=== PATIENT | female | born 1955 | race Caucasian/White ===

== ENCOUNTER → 2017-03-29 16:04 | Outpatient (CLI) | payer OTHER ==
[2013-05-05 08:25] VITALS: BMI 24.0
[~2017-03-29 16:04] MED LIST: ADIPEX-P37.5 M1 PO; NORCO 10/325 TA1 TA1 PO
== END | disposition home or self-care (01) ==
LOC: D.MAMMO 09:45
DX: Z12.31 Encounter for screening mammogram for malignant neoplasm of breast (principal)

== ENCOUNTER → 2017-04-28 16:09 | Outpatient (CLI) | payer OTHER ==
[2013-05-05 08:25] VITALS: BMI 24.0
== END | disposition home or self-care (01) ==
LOC: D.MAMMO 14:30
DX: R92.8 Other abnormal and inconclusive findings on diagnostic imaging of breast (principal)

== ENCOUNTER → 2017-12-08 15:16 | Outpatient (CLI) | payer OTHER ==
[2013-05-05 08:25] VITALS: BMI 24.0
== END | disposition home or self-care (01) ==
LOC: D.MAMMO 11-01 09:00 → D.US 11-01 10:00 → D.MAMMO 09:00
DX: R92.8 Other abnormal and inconclusive findings on diagnostic imaging of breast (principal)

== ENCOUNTER → 2018-06-08 23:39 | Outpatient (CLI) | payer OTHER ==
[2013-05-05 08:25] VITALS: BMI 24.0
== END | disposition home or self-care (01) ==
LOC: D.MAMMO 09:00
DX: R92.8 Other abnormal and inconclusive findings on diagnostic imaging of breast (principal)

== ENCOUNTER 2019-09-06 09:00 | Outpatient (CLI) | payer OTHER ==
[2013-05-05 08:25] VITALS: BMI 24.0
== END 2019-09-06 10:00 | disposition home or self-care (01) ==
LOC: D.MAMMO 09:00
PROVIDERS: ATTEND Family Medicine
DX: Z12.31 Encounter for screening mammogram for malignant neoplasm of breast (principal)